=== PATIENT | male | born 1930 | race Caucasian/White ===

== ENCOUNTER → 2016-06-19 10:42 | Outpatient (CLI) | payer MEDICARE, BC ==
[2014-04-09 10:33] VITALS: BMI 22.8
[~2016-06-19 10:42] MED LIST: BAYER CHEWABLE81 MG PO; BETAPACE 80 MG80 MG PO; PRADAXA75 MG PO; TOPROL XL25 MG PO; ZOCOR80 MG PO
== END | disposition home or self-care (01) ==
LOC: D.CT 10:42
DX: S09.90XA Unspecified injury of head, initial encounter (principal); X58.XXXA Exposure to other specified factors, initial encounter; Y93.89 Activity, other specified; Y92.89 Other specified places as the place of occurrence of the external cause

== ENCOUNTER 2018-12-24 19:31 | Inpatient (IN) | payer MEDICARE, BC ==
[2018-12-24] VITALS (9 sets, daily range): BP systolic 109–179; BP diastolic 73–118; Ht 175.3 cm; Wt 54.1 kg
[~2018-12-24] VITALS: Ht 175.3 cm; Wt 54.1 kg
--- NOTE | 2018-12-24 19:31 | NUR ---
PT ARRIVED VIA EMS WITH AMS. PT ARRIVED WITH AGONAL RESPIRATIONS AND UNRESPONSIVE. EMS STATES HIS CONDITION WORSENED WITH RESPIRATONS EN ROUTE. OXYGEN ON PT AT 6 LITERS. IV SL TO LEFT HAND IN PLACE. MED LIST DOES NOT SHOW BLOOD THINNERS, ONLY ASA 81MG. EMS STATES PT WAS ALERT AND ORIENTED AND ACTUALLY DROVE TO [place] AND BACK TWICE TODAY. AT APPROX 1800 STATES HE WENT TO THE BEDROOM AND AT 1820 WENT TO CHECK ON HIM AND HE WAS SEVERLY ALTERED AND UNABLE TO AWAKEN PATIENT.
--- NOTE | 2018-12-24 19:39 | NUR ---
NARCAN ADMINISTERED WITH NO CHANGE IN MENTAL STATUS. DR SHELTON AT BEDSIDE AND WILL NOW PREPARE TO INTUBATE.
--- NOTE | 2018-12-24 19:49 | NUR ---
PT INTUBATED WITH 7.[address] SHELTON. PREPARED FOR EMERGENT CT OF HEAD.
[2018-12-24 19:52] LABS: BASOPHILS 0.3 % (0-2); EOSINOPHILS 4.8 % (0-7); HEMATOCRIT 41.4 % (42.0-54.0); HEMOGLOBIN 13.6 g/dL (13.5-17.5); IMMATURE GRANULOCYTES 0.3 % (0-5); LYMPHOCYTES 26.7 % (15-50); MCH 33.3 pg (26.0-34.0); MCHC 32.9 g/dL (31.0-37.0); MCV 101.5 fL (80.0-100.0); MEAN PLATELET VOLUME 8.7 fL (7.4-10.4); MONOCYTES 9.8 % (2-11); NEUTROPHILS 58.1 % (40-80); PLATELET COUNT 141 10x3/uL (130-400); RBC 4.08 10x6/uL (4.20-6.10); RDW 13.5 % (11.5-14.5); WBC 6.2 10x3/uL (4.8-10.8)
--- NOTE | 2018-12-24 19:53 | NUR ---
PT TO CT WITH MONITOR AND R/T AND RN.
--- NOTE | 2018-12-24 20:01 | NUR ---
BACK FROM CT. RECONNECTED TO ALL MONITORS. NO CHANGE IN MENTAL STATUS.
[2018-12-24 20:02] LABS: APTT 25.5 SECONDS (22.8-39.4); INR 0.98 (0.85-1.17); PROTIME 12.5 SECONDS (11.6-15.0)
--- NOTE | 2018-12-24 20:06 | NUR ---
CXR OBTAINED. NO CHANGE IN MENTATION. LAWRENCE CATHETER INSERTED.
[2018-12-24 20:09] LABS: CALC OSMOLALITY 275 mosm/kg (275-300); CALCIUM 8.4 mg/dL (8.5-10.1); CARBON DIOXIDE 31.3 mmol/L (21.0-32.0); CHLORIDE - SERUM 100 mmol/L (98-107); CREATININE - SERUM 0.6 mg/dL (0.6-1.3); GLUCOSE 142 mg/dL (74-106); POTASSIUM - SERUM 3.5 mmol/L (3.5-5.1); SODIUM 138 mmol/L (136-145); UREA NITROGEN 8 mg/dL (7-18); eGFR NON AFRICAN AMERICAN > 90 mL/min (90-120)
[2018-12-24 20:22] LABS: ALBUMIN 3.9 g/dL (3.4-5.0); ALKALINE PHOSPHATASE 105 U/L (46-116); ALT (SGPT) 27 U/L (10-68); BILIRUBIN - TOTAL 0.81 mg/dL (0.2-1.3); CKMB 1.8 U/L (0.0-3.6); CREATINE KINASE 132 UL (21-232); MAGNESIUM - SERUM 2.2 mg/dL (1.8-2.4); PROTEIN - SERUM 7.7 g/dL (6.4-8.2)
[2018-12-24 20:23] LABS: TROPONIN-I < 0.017 ng/mL (0.000-0.060)
--- NOTE | 2018-12-24 20:25 | NUR ---
BILATERAL SOFT WRIST RESTRAINTS APPLIED. FLOW SHEET BEGAN. DR MOREL HERE TO SEE PT AND SPEAK TO SPOUSE.
[2018-12-24 20:37] LABS: APPEARANCE CLEAR (CLEAR); BILIRUBIN NEGATIVE (NEGATIVE); COLOR YELLOW (YELLOW); GLUCOSE NEGATIVE (NEGATIVE); KETONE NEGATIVE (NEGATIVE); NITRITE NEGATIVE (NEGATIVE); PROTEIN NEGATIVE (NEGATIVE); UROBILINOGEN NORMAL (NORMAL)
[2018-12-24 20:44] LABS: UDS - AMPHET NEGATIVE QUAL (NEGATIVE); UDS - BARB NEGATIVE QUAL (NEGATIVE); UDS - BENZO NEGATIVE QUAL (NEGATIVE); UDS - COCAINE NEGATIVE QUAL (NEGATIVE); UDS - OPIATE NEGATIVE QUAL (NEGATIVE); UDS - PCP NEGATIVE QUAL (NEGATIVE); UDS - THC NEGATIVE QUAL (NEGATIVE)
--- NOTE | 2018-12-24 21:15 | NUR ---
RECEIVED PT ON BED BY VISHNU CALL FROM ER. PT INTUBATED, SEE FLOWSHEET FOR VENT SETTINGS. ADMISSION ASSESSMENT COMPLETE. L HAND PIV SALINE LOCKED, R HAND PIV PATENT, SEE IV FLOW SHEET. B/P 153/102, HR 78, O2 100%. PT UNRESPOSIVE, SEDATED. WILL CONTINUE PLAN OF CARE.
--- NOTE | 2018-12-24 21:55 | NUR ---
SPOKE WITH ER, THEY ARE BRINGING PT'S TO VISIT. SHE IS STILL DISTRAUGHT AND WILL MORE THAN LIKELY NOT BE ABLE TO ANSWER MANY QUESTIONS. WILL ATEMPT TO GET MEDICAL HX FROM FAMILY.
--- NOTE | 2018-12-24 23:58 | NUR ---
spoke with alexis genao to terminate life support and call back with time of cardiac expiration for possible tissue screening
[2018-12-25] VITALS (12 sets, daily range): BP systolic 114–188; BP diastolic 82–114
--- NOTE | 2018-12-25 00:50 | NUR ---
PT EMESISED APPROX 100 CC BROWN GASTRIC CONTENTS, ORAL SUCTIONING PERFORMED, LINENS CHANGED
--- NOTE | 2018-12-25 01:05 | NUR ---
NICHOLAS HARTMAN APN, PT B/P 188/113, INFORMED OF EMESIS, ORDERS RECIEVED, GIVEN ZOFRAN 8 MG IVP, FAMILY @ BEDSIDE
--- NOTE | 2018-12-25 03:00 | NUR ---
PT UNRESPONSIVE, PUPILS FIXED AND DILATED, REMAINS ON VENT, WILL CONT TO MONITOR, PT EMESISED AGAIN, CLEANED PER STAFF
--- NOTE | 2018-12-25 05:07 | NUR ---
PT STATUS REMAINS UNCHANGED, PUPILS FIXED, ETT PATENT TO VENT, NO DISTRESS NOTED
--- NOTE | 2018-12-25 07:10 | NUR ---
REPORT RECIEVED, SHIFT ASSESSMENT COMPLETE, PT IS UNRESPONSIVE ON VENT, ON 40% FIO2 WITH 98% O2 SAT, ALL PPP, VSS, WILL CON'T TO MONITOR
--- NOTE | 2018-12-25 09:30 | NUR ---
FAMILY AT BEDSIDE, REQUESTING TERMINAL EXTUBATION
--- NOTE | 2018-12-25 10:20 | NUR ---
PT TERMINALLY EXTUBATED AT THIS TIME, FAMILY AT BEDSIDE
--- NOTE | 2018-12-25 11:07 | NUR ---
PT ASYSTOLE ON THE MONITOR, DR. UNDERWOOD AT BEDSIDE TO PRONOUNCE
--- NOTE | 2018-12-25 11:19 | NUR ---
[facility] NOTIFIED OF PT
--- NOTE | 2018-12-25 11:50 | NUR ---
HOME NOTIFIED OF NEED OF SERVICE
--- NOTE | 2018-12-25 12:15 | NUR ---
HOME AT BEDSIDE
--- NOTE | 2018-12-25 14:52 | MORECARE ---
CASE MANAGEMENT DISCHARGE SUMMARY PATIENT: JACQUELYN MULLIGAN UNIT: [id number] ADM DATE: 12/24/18 AGE: 88 : 30 SEX: M ROOM/BED: D.2309 AUTHOR: RANDY GARCES PHYSICIAN: REFERRING PHYSICIAN: ANAMARIA UNDERWOOD MD DATE OF SERVICE: 12/25/18 Discharge Plan Patient Name: [facility]AC[facility]ULLIGAN [facility] [facility] 1930 Planned Disposition: Anticipated Discharge Date: Discharge Date: 12/25/2018 Expected LOS: Initial Reviewer: [email or web address] Initial Review Date: 12/25/2018 Generated: 12/25/18 3:52 pm Patient Name: JACQUELYN MULLIGAN Page [id number] at 1452 All edits/amendments must be made on the electronic document DICTATION DATE: 12/25/181451 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
--- NOTE | 2018-12-25 15:11 | MORECARE ---
CASE MANAGEMENT DISCHARGE SUMMARY PATIENT: JACQUELYN MULLIGAN UNIT: [id number] ADM DATE: 12/24/18 AGE: 88 : 30 SEX: M ROOM/BED: D.2309 AUTHOR: RANDY GARCES PHYSICIAN: REFERRING PHYSICIAN: ANAMARIA UNDERWOOD MD DATE OF SERVICE: 12/25/18 Discharge Plan Patient Name: JACQUELYN MULLIGAN [facility] [facility] 1930 Planned Disposition: Anticipated Discharge Date: Discharge Date: 12/25/2018 Expected LOS: Initial Reviewer: [email or web address] Initial Review Date: 12/25/2018 Generated: 12/25/18 4:11 pm Comments DCP- Discharge Planning Updated by [email or web address]: Muna Limon on 12/25/18 2:[address] CM was notified that patient had and was registered with [employer] whole body donation. Family had gave nursing a contact number to call. CM called and answered questions related to patient and along with family contact numbers. Dorene stated that they would contact [facility] to come and excelsior picker body. Last DP export: 12/25/18 1:52 Patient Name: JACQUELYN MULLIGAN Page [phone] at 1511 All edits/amendments must be made on the electronic document DICTATION DATE: 12/25/181510 OTC CLERK: LIZ 12/25/181510 RPT#: [id number] DC DATE:12/25/18 STATUS: DIS IN [facility] [address] [place] [address] END OF REPORT
== END 2018-12-25 11:07 | DRG 64 ==
LOC: D.ER 19:31 → D.ICU 20:34
PROVIDERS: Family Medicine; ADMIT Internal Medicine Nephrology; ATTEND Internal Medicine Nephrology
PROC: 5A1935Z Respiratory Ventilation, Less than 24 Consecutive Hours (ICD-10-PCS; principal; 2018-12-24)
PROC: 0BH17EZ Insertion of Endotracheal Airway into Trachea, Via Natural or Artificial Opening (ICD-10-PCS; 2018-12-24)
DX: I62.9 Nontraumatic intracranial hemorrhage, unspecified (principal); J96.01 Acute respiratory failure with hypoxia; I10 Essential (primary) hypertension; E78.5 Hyperlipidemia, unspecified; R40.2113 Coma scale, eyes open, never, at hospital admission; R40.2333 Coma scale, best motor response, abnormal flexion, at hospital admission; R40.2213 Coma scale, best verbal response, none, at hospital admission; R50.9 Fever, unspecified